=== PATIENT | female | born 1975 | race Caucasian/White ===

== ENCOUNTER → 2019-11-28 15:36 | Outpatient (BNVA) | payer BC, SELFPAY | PROVIDERS: Family Provider Nurse Practitioner; PCP Nurse Practitioner; Visit Provider Nurse Practitioner Family | DX: R00.2 Palpitations (principal); F41.9 Anxiety disorder, unspecified | CPT/HCPCS: 84439; 84443 ==

== ENCOUNTER 2020-02-08 09:44 | Outpatient (CLI) | payer BC, SELFPAY ==
--- NOTE | 2020-02-08 09:30 | USCV_ITS ---
Tami Molina Age: 44 Gender: F : 1975 Exam Date: 02/08/2020 10:09 Ordering Phys: Nadine Azevedo MD ([email or web address]) Technologist: Jenni Arana Exam Location: [facility] – [place] Indication: PVC'S BP: 100 / 60 HR: 53 Rhythm: Sinus Technical Quality: Adequate MEASUREMENTS (Male / Female) Normal Values 2D ECHO LV Diastolic Diameter PLAX 4.4 cm 4.2 - 5.9 / 3.9 - 5.3 cm LV Systolic Diameter PLAX 3.0 cm LV Chamber Size 2.5 cm IVS Diastolic Thickness 1.3 cm 0.6 - 1.0 / 0.6 - 0.9 cm IVS Systolic Thickness 1.3 cm LVPW Diastolic Thickness 1.2 cm 0.6 - 1.0 / 0.6 - 0.9 cm LVPW Systolic Thickness 1.2 cm RV Chamber Size 2.0 cm LVOT Diameter 2.1 cm LV Ejection Fraction 2D Teich 58.7 % LV Ejection Fraction MOD 2C 80.8 % LV Ejection Fraction 2C AL 82.6 % LA Diameter 3.1 cm LA Width 2.3 cm LA Height 4.5 cm RA Width 2.9 cm Aorta at Sinotubular Diameter 3.1 cm M-MODE LV Diastolic Diameter MM 4.2 cm 4.2 - 5.9 / 3.9 - 5.3 cm LV Systolic Diameter MM 2.7 cm LV Ejection Fraction MM Teich 64.0 % IVS Diastolic Thickness MM 0.9 cm 0.6 - 1.0 / 0.6 - 0.9 cm IVS Systolic Thickness MM 1.2 cm LVPW Diastolic Thickness MM 1.1 cm 0.6 - 1.0 / 0.6 - 0.9 cm LVPW Systolic Thickness MM 1.7 cm RV Diastolic Diameter MM 1.2 cm Aortic Annulus Diameter 3.5 cm LA Ao Ratio MM 0.9 MV E Point Septal Separation 0.5 cm DOPPLER AV Peak Velocity 136.0 cm/s LVOT Peak Velocity 87.0 cm/s AV Area Cont Eq vti 2.6 cm squared AV Area Cont Eq pk 2.2 cm squared MV Area PHT 4.3 cm squared Mitral E to A Ratio 1.7 MV E' Velocity 15.0 cm/s Mitral E to MV E' Ratio 8.4 Mitral E to LV E' Lateral Ratio 6.8 Mitral E to LV E' Septal Ratio 11.1 TR Peak Velocity 124.8 cm/s TR Peak Gradient 6.2 mmHg TR Mean Velocity 76.5 cm/s TR Mean Gradient 2.7 mmHg TR Velocity Time Integral 29.3 cm TV Peak E Velocity 81.0 cm/s Right Atrial Pressure 3.0 mmHg Pulmonary Artery Systolic Pressu 9.2 mmHg PV Peak Velocity 69.0 cm/s RV Acceleration Time 0.2 s RV Ejection Time 0.4 s RV AcT/ET 0.5 FINDINGS Left Ventricle Normal left ventricular size, systolic function and wall thickness, with no regional wall motion abnormalities. Left ventricular ejection fraction is estimated at 65 %. Normal diastolic function. Right Ventricle Normal right ventricular size and systolic function. Right ventricular systolic pressure 9.2 mmHg. Right Atrium Normal right atrial size. Right atrial pressure estimated at 3 mmHg. Left Atrium Normal left atrial size. Mitral Valve Structurally normal mitral valve. No mitral valve stenosis. Trace mitral valve regurgitation. Aortic Valve Structurally normal trileaflet aortic valve. No aortic valve stenosis. No aortic valve regurgitation. Tricuspid Valve Structurally normal tricuspid valve. Trace tricuspid valve regurgitation. Pulmonic Valve Pulmonic valve not well visualized. Pericardium No pericardial effusion. Aorta Normal-sized aortic root. CONCLUSIONS 1. Normal left ventricular size, systolic function and wall thickness, with no regional wall motion abnormalities. Left ventricular ejection fraction is estimated at 65 %. Normal diastolic function. 2. Normal right ventricular size and systolic function. 3. Normal pulmonary artery pressure. 4. No significant valvular abnormality. 5. No prior similar studies to compare. Nadine Azevedo MD (Electronically Signed) Final Date: 08 February 2020 13:25 S
--- NOTE | 2020-02-08 09:30 | US_ITS ---
WS: [id number] THYROID ULTRASOUND HISTORY: thyroid tenderness COMPARISON: None available. Right lobe: 5.4 cm x 2.7 cm x 2.1 cm. Volume: 15.9 cm3. RIGHT lobe is enlarged. There is a large mass centered in the mid gland with peripheral increased vas cularity. Mass measures 3.3 x 1.8 x 2.3 cm. There are a few cystic areas present but the mass is pred ominantly solid. Left lobe: 3.7 cm x 1.0 cm x 1.3 cm. Volume: 2.5 cm3. Normal size and echotexture. No significant or dominant nodules are present. Isthmus: 0.5 cm. US/US thyroid [id number] IMPRESSION: Solid RIGHT thyroid mass measures 3.3 x 1.8 x 2.3 cm. Recommend fine-needle asp iration with ultrasound guidance. Cytology needs to be performed to exclude mal ignancy.
== END 2020-02-08 09:45 | disposition home or self-care (01) ==
LOC: RAD 09:49
PROVIDERS: Family Provider Nurse Practitioner; PCP Nurse Practitioner Family; Visit Provider Internal Medicine Cardiovascular Disease
DX: R00.2 Palpitations (principal); E07.9 Disorder of thyroid, unspecified; R22.1 Localized swelling, mass and lump, neck
CPT/HCPCS: 76536; 93306

== ENCOUNTER 2020-03-14 11:02 | Outpatient (CLI) | payer BC, SELFPAY ==
--- NOTE | 2020-03-14 11:11 | ECG_ITS ---
NAME OF STUDY: TREADMILL STRESS TEST INDICATION: CARDIAC ARRYTHMIA, EXERCISE DATA: The patient was exercised by Daniel protocol. Baseline heart rate was 65 beats per minute. Baseline blood pressure was 111/79 millimeters of mercury. Target heart rate was 174 beats per minute. Maximum heart rate achieved was 161, which was 92 % of the target heart rate. Maximum blood pressure was 183/86 millimeters of mercury. Total exercise time was 8 minutes 1 second. Maximum METs achieved was 10.2, maximum VO2 was 35.7. The reason for ending the test was maximum effort. The patient complained of shortness of breath during the stress test, which then resolved at the end of the test. ELECTROCARDIOGRAM: BASELINE: Sinus rhythm, normal axis, no significant ST-T changes at the baseline noted. EXERCISE: At the peak exercise level, no significant ST-T changes suggestive of ischemia noted. RECOVERY: During the recovery period, heart rate dropped appropriately. No significant ST-T changes in the recovery suggestive of ischemia noted. CONCLUSION: 1. Exercise capacity fair. 2. Heart rate response was appropriate. 3. Blood pressure response was appropriate. 4. Symptoms not suggestive of ischemia. 5. Electrocardiogram portion of the stress test was not suggestive of ischemia. Electronically Signed On 03-14-2020 19:06:58 CDT by Teresa Arnold M.D. [email or web address]
[2020-03-14 11:13] VITALS: BMI 30.2
[2020-03-14 12:06] VITALS: BP 141/90; PULSE 91
== END 2020-03-14 11:03 | disposition home or self-care (01) ==
LOC: CDL 11:04
PROVIDERS: PCP Nurse Practitioner Family; Visit Provider Nurse Practitioner Family
DX: I49.9 Cardiac arrhythmia, unspecified (principal)
CPT/HCPCS: 93017

== ENCOUNTER → 2020-08-28 09:17 | Outpatient (BNVA) | payer BC, SELFPAY | PROVIDERS: PCP Nurse Practitioner Family; Visit Provider Nurse Practitioner Family | DX: R70.0 Elevated erythrocyte sedimentation rate (principal); E78.5 Hyperlipidemia, unspecified; R53.83 Other fatigue | CPT/HCPCS: 80053; 80061; 82607; 83735; 84443; 85007; 85027; 85651; 86038; 86431 ==

== ENCOUNTER → 2020-09-04 00:01 | Outpatient (BNVA) | payer BC, SELFPAY | PROVIDERS: PCP Nurse Practitioner Family; Visit Provider Nurse Practitioner Family | DX: R70.0 Elevated erythrocyte sedimentation rate (principal) | CPT/HCPCS: 85651 ==

== ENCOUNTER → 2020-09-11 09:16 | Outpatient (BNVA) | payer BC, SELFPAY | PROVIDERS: PCP Nurse Practitioner Family; Visit Provider Nurse Practitioner Family | DX: M54.9 Dorsalgia, unspecified (principal) | CPT/HCPCS: 81000 ==

== ENCOUNTER 2020-11-05 13:26 | Outpatient (CLI) | payer OTHER, SELFPAY ==
--- NOTE | 2020-11-05 13:35 | XR_ITS ---
WS: [id number] CHEST 2 VIEWS HISTORY: cough COMPARISON: None available. Lungs: Clear with no abnormality. No pleural effusion or pneumothorax. Cardiac size: Normal. Mediastinum/Aorta: Normal mediastinum. Bones: Mild thoracolumbar scoliosis. Prior anterior cervical fusion. XR/XR chest 2V* [id number] IMPRESSION: Normal chest.
--- NOTE | 2020-11-05 13:35 | XR_ITS ---
WS: [id number] CERVICAL SPINE 3 VIEWS HISTORY: M54.2 - Cervicalgia COMPARISON: None available. Mild straightening of the normal cervical lordosis. Less than 2 mm retrolisthesis of C5. Prior anteri or cervical fusion at C6-7 with interbody spacer. Fusion across the interbody spacer. Mild disc space narrowing at C5-6. Prevertebral soft tissues are normal. Lateral masses of C1 and C2 are aligned. Soft tissues are normal. XR/XR cervical spine 3V* [id number] IMPRESSION: 1. Prior anterior cervical fusion with interbody spacer at C6-7. 2. Minimal disc space narrowing at C5-6.
--- NOTE | 2020-11-05 13:35 | XR_ITS ---
WS: [id number] LUMBAR SPINE: 3 VIEWS TECHNIQUE: AP, lateral and L5-S1 spot. HISTORY: M54.5 - Low back pain COMPARISON: None available. History slight LEFT curvature the lumbar spine. Disc spaces are normal. Very minimal hypertrophic end plate changes due to osteophytes. No fractures. No loss of disc space or vertebral body height. SI joints are symmetric bilaterally. No soft tissue abnormalities. XR/XR lumbar spine 2-3V* [id number] IMPRESSION: Mild lumbar spondylosis.
== END 2020-11-05 13:27 | disposition home or self-care (01) ==
LOC: RADWPI 13:30
PROVIDERS: PCP Nurse Practitioner Family; Visit Provider Nurse Practitioner Family
DX: R05 Cough (principal); M47.816 Spondylosis without myelopathy or radiculopathy, lumbar region; M43.22 Fusion of spine, cervical region
CPT/HCPCS: 71046; 72040; 72100

== ENCOUNTER 2021-01-07 14:52 | Outpatient (CLI) | payer OTHER, SELFPAY ==
--- NOTE | 2021-01-07 15:09 | MR_ITS ---
WS: [id number] MRI CERVICAL SPINE NONCONTRAST AND CONTRAST TECHNIQUE: Sagittal T1, T2 and STIR imaging. Axial T2, gradient, and fiesta imaging. Post gadolinium imaging was obtained. CLINICAL INFORMATION: M47.12 - Other spondylosis with myelopathy, cervical region COMPARISON: MRI January 2010 FINDINGS: Straightening of the normal cervical lordosis. Cord signal is normal. No high-grade central canal janie nosis. ACDF C6-7 appears similar to previous. C2-C3: Normal. C3-C4: Mild facet arthropathy. Mild osteophytic ridging. Mild left and no significant right foraminal narrowing. C4-C5: Mild disc osteophyte complex with endplate ridging. Tiny central protrusion. Mild central melia l stenosis. Mild left greater than right foraminal narrowing. Mild facet arthropathy. C5-C6: Disc osteophyte complex with endplate ridging. Mild central canal stenosis. Mild bilateral for aminal narrowing. Mild facet arthropathy. Mild central canal stenosis. C6-C7: Postoperative changes anterior interbody fusion. Spinal canal and foramen are patent. C7-T1: Normal. Visualized brain stem structures: Normal. Prevertebral soft tissues: Normal. MR/MR cervical spine wo/w [id number] IMPRESSION: 1. Straightening of the normal cervical lordosis. Cord signal is normal. No hi gh-grade central canal narrowing. 2. Stable postoperative changes ACDF C6-7. 3. Mild central canal stenosis C4-5 with tiny central protrusion. 4. Mild central canal stenosis C5-C6. 5. Mild bony foraminal narrowing more prominent at left C3-4, bilateral C4-5, and bilateral C5-6.
[2021-01-07] MEDS: gadobenate dimeglumine 20 mL vial IV (15:53)
== END 2021-01-07 14:53 | disposition home or self-care (01) ==
LOC: RADWPI 14:55
PROVIDERS: PCP Nurse Practitioner Family; Visit Provider Orthopaedic Surgery
DX: M47.12 Other spondylosis with myelopathy, cervical region (principal); M48.02 Spinal stenosis, cervical region; M50.221 Other cervical disc displacement at C4-C5 level; Z98.1 Arthrodesis status
CPT/HCPCS: 72156; A9577

== ENCOUNTER → 2021-01-23 09:08 | Outpatient (BNVA) | payer OTHER, SELFPAY | PROVIDERS: PCP Nurse Practitioner Family; Referring Provider Orthopaedic Surgery; Visit Provider Anesthesiology Pain Medicine | DX: G89.29 Other chronic pain (principal); M54.12 Radiculopathy, cervical region; M50.90 Cervical disc disorder, unspecified, unspecified cervical region; M47.812 Spondylosis without myelopathy or radiculopathy, cervical region; F17.210 Nicotine dependence, cigarettes, uncomplicated | CPT/HCPCS: 99205 ==

== ENCOUNTER → 2021-01-29 10:04 | Outpatient (BNVA) | payer OTHER, SELFPAY | PROVIDERS: PCP Nurse Practitioner Family; Visit Provider Nurse Practitioner Family | DX: E03.9 Hypothyroidism, unspecified (principal); M54.2 Cervicalgia | CPT/HCPCS: 84443 ==

== ENCOUNTER → 2021-02-04 13:46 | Outpatient (BNVA) | payer OTHER, SELFPAY | PROVIDERS: PCP Nurse Practitioner Family; Visit Provider Anesthesiology Pain Medicine | DX: G89.29 Other chronic pain (principal); M54.12 Radiculopathy, cervical region; F17.210 Nicotine dependence, cigarettes, uncomplicated | CPT/HCPCS: 62321; J1100 ==

== ENCOUNTER → 2021-02-19 09:56 | Outpatient (BNVA) | payer OTHER, SELFPAY | PROVIDERS: PCP Nurse Practitioner Family; Visit Provider Anesthesiology Pain Medicine | DX: G89.29 Other chronic pain (principal); M47.812 Spondylosis without myelopathy or radiculopathy, cervical region; M54.12 Radiculopathy, cervical region; M50.90 Cervical disc disorder, unspecified, unspecified cervical region; F17.210 Nicotine dependence, cigarettes, uncomplicated | CPT/HCPCS: 99213; 99214 ==

== ENCOUNTER 2021-02-26 06:00 | Outpatient (RCR) | payer OTHER, SELFPAY | END 2021-03-25 23:59 | disposition home or self-care (01) | LOC: SPT 06:00 | PROVIDERS: PCP Nurse Practitioner Family; Referring Provider Anesthesiology Pain Medicine; Visit Provider Anesthesiology Pain Medicine | DX: M47.812 Spondylosis without myelopathy or radiculopathy, cervical region (principal); M54.2 Cervicalgia; G89.29 Other chronic pain | CPT/HCPCS: 97110; 97140; 97162 ==

== ENCOUNTER 2021-02-27 12:46 | Outpatient (CLI) | payer OTHER, SELFPAY ==
--- NOTE | 2021-02-27 12:45 | US_ITS ---
WS: [id number] ULTRASOUND THYROID TECHNIQUE: Ultrasound of the thyroid. CLINICAL INFORMATION: E04.1 - Nontoxic single thyroid nodule COMPARISON: Ultrasound February 08, 2020 FINDINGS: Thyroid: Prior right thyroidectomy. Left thyroid lobe is normal in appearance. No left thyroid nodule s. Left thyroid lobe: 3.3 cm x 1.1 cm x 1.2 cm. Isthmus: 0.2 mm. Cervical lymphadenopathy: None. US/US thyroid [id number] IMPRESSION: 1. Prior right thyroidectomy. 2. Left thyroid lobe is normal. No left thyroid nodules. 3. Normal isthmus. 4. No cervical lymphadenopathy.
== END 2021-02-27 12:47 | disposition home or self-care (01) ==
LOC: RAD 12:49
PROVIDERS: PCP Nurse Practitioner Family; Visit Provider Nurse Practitioner Family
DX: E04.1 Nontoxic single thyroid nodule (principal); E89.0 Postprocedural hypothyroidism
CPT/HCPCS: 76536

== ENCOUNTER 2021-03-26 06:00 | Outpatient (RCR) | payer OTHER, SELFPAY | END 2021-04-24 23:59 | disposition home or self-care (01) | LOC: SPT 06:00 | PROVIDERS: PCP Nurse Practitioner Family; Referring Provider Anesthesiology Pain Medicine; Visit Provider Anesthesiology Pain Medicine | DX: M47.812 Spondylosis without myelopathy or radiculopathy, cervical region (principal); M54.2 Cervicalgia; G89.29 Other chronic pain | CPT/HCPCS: 97110; 97140 ==

== ENCOUNTER 2021-04-25 06:00 | Outpatient (RCR) | payer SELFPAY | END 2021-05-25 23:59 | disposition home or self-care (01) | LOC: SPT 06:00 | PROVIDERS: PCP Nurse Practitioner Family; Referring Provider Anesthesiology Pain Medicine; Visit Provider Anesthesiology Pain Medicine | DX: M47.812 Spondylosis without myelopathy or radiculopathy, cervical region (principal); M54.2 Cervicalgia; G89.29 Other chronic pain | CPT/HCPCS: 97110 ==

== ENCOUNTER 2021-08-14 09:16 | Outpatient (CLI) | payer OTHER, SELFPAY ==
--- NOTE | 2021-08-14 09:30 | US_ITS ---
WS: [id number] ULTRASOUND ABDOMEN LIMITED CLINICAL INFORMATION: R10.811 - Right upper quadrant abdominal tenderness COMPARISON: None. FINDINGS: Liver Size: Normal. Craniocaudal length: 14.3 cm. Echogenicity: Normal. Surface nodularity: None. Mass (size and location): None. Bile ducts Intrahepatic ducts: Normal. Common bile duct diameter: 0.2 cm. Gallbladder Cholelithiasis Gallstones: Present. Gallbladder sludge: None. Gallbladder wall thickening: None. Pericholecystic fluid: None. Sonographic Mcdaniel sign: Absent. Pancreas Normal as visualized. Right kidney: Normal. Hydronephrosis: None. Size: 10.0 cm x 4.6 cm x 5.3 cm. Abdominal aorta and IVC Visualized portions are normal. Ascites: None. US/US gall bladder 06202 IMPRESSION: 1. Normal liver. 2. Cholelithiasis. No gallbladder wall thickening or pericholecystic fluid. 3. No hydronephrosis in right kidney. 4. No ascites.
== END 2021-08-14 09:17 | disposition home or self-care (01) ==
LOC: RAD 09:17
PROVIDERS: PCP Nurse Practitioner Family; Visit Provider Nurse Practitioner Family
DX: R10.811 Right upper quadrant abdominal tenderness (principal); K80.20 Calculus of gallbladder without cholecystitis without obstruction
CPT/HCPCS: 76705

== ENCOUNTER → 2021-08-23 13:45 | Outpatient (BNVA) | payer OTHER, SELFPAY | PROVIDERS: PCP Nurse Practitioner Family; Referring Provider Nurse Practitioner Family; Visit Provider Surgery | DX: Z20.822 Contact with and (suspected) exposure to COVID-19 (principal); K80.20 Calculus of gallbladder without cholecystitis without obstruction | CPT/HCPCS: 87635 ==

== ENCOUNTER 2021-08-28 09:49 | Day surgery (SDC) | payer OTHER, SELFPAY ==
[2021-08-27 14:50] VITALS: BMI 31.1
[2021-08-28] VITALS (15 sets, daily range): BP systolic 119–151; BP diastolic 72–94; PULSE 72–87; RESP 10–18; TEMP 36.2–36.3; O2SAT 92–100
--- NOTE | 2021-08-28 10:36 | ANES.PREANE2 ---
Pre-Anesthetic Assessment Pre-Anesthetic Assessment: Height/Weight: Height 1.57 m Weight 77.111 kg Temp Pulse Resp BP Pulse Ox 97.2 F L 73 16 122/88 97 08/28/21 10:12 08/28/21 10:12 08/28/21 10:12 08/28/21 10:12 08/28/21 10:12 Preop Diagnosis: Cholelithiasis Proposed Procedure: Operation Date: 08/28/21 11:10 Proposed Procedures p Laparoscopic Cholecystectomy 87042 K80.02(Not Applicable) - Herman Porter MD Familial anesthetic complications: None Was Beta Abdifatah taken within 24 hours: N/A Was Clonidine taken within 24 hours: N/A Last intake: Intake Last Liquid Date 08/27/21 Last Liquid Time 23:00 Last Solid Date 08/27/21 Last Solid Time 19:00 Social: Social History: Tobacco and No alcohol Exam: Pre-Anes Outpt Exam: alert, oriented x 3, clear to auscultation bilaterally and regular rate & rhythm Airway: MP: 3 Dentition: Partials Metabolic: Metabolic: Hyperlipidemia Anesthetic Plan: ASA status: 2 Anesthesia: General Risk of > 500 ml blood loss (7ml/kg in children): No PFSH Anesthesia PFSH: Medical History (Updated 08/23/21 @ 16:35 by Herman Porter MD) Anxiety Depression GERD (gastroesophageal reflux disease) Surgical History (Updated 08/23/21 @ 13:42 by Herman Porter MD) H/O: hysterectomy History of thyroid surgery Hx of fusion of cervical spine Family History Father CAD (coronary artery disease), Onset Age: 45 stents Grandfather CAD (coronary artery disease), Onset Age: 45 Social History Smoking and tobacco status: current every day smoker cigarettes Packs smoked per day: 1 Quit status (tobacco): has tried quititng Data Anesthesia Cardiac Studies: Holter Monitor 12/29/19
[2021-08-28 10:37] LABS: Glucose Point of Care 82 mg/dL (70-110)
[2021-08-28] MEDS: sodium chloride 0.9% 1,000 ML 30 ML IV (10:40)
--- NOTE | 2021-08-28 10:52 | W.PM.OPSUD ---
Surgery/Procedure H&P Update DATE OF PROCEDURE: August 28, 2021 DATE H&P PERFORMED: 08/23/21 H&P UPDATE INFORMATION: I have reviewed H&P completed within last 30 days, I have examined patient prior to procedure and No changes to prior documentation PREOP DIAGNOSIS: Cholelithiasis PLANNED PROCEDURE: Operation Date: 08/28/21 11:10 Proposed Procedures p Laparoscopic Cholecystectomy 04189 K80.02(Not Applicable) - Herman Porter MD
[2021-08-28] MEDS: ondansetron 2 mg/ML SDV 2 mL 4 MG IVP (12:25)
[2021-08-28] MEDS: fentaNYL 50 mcg/mL INJ 2mL IVP ×2 (12:31→12:46)
--- NOTE | 2021-08-28 12:38 | SUR.PHASEI ---
pt care assumed by KENYATTA AT 1230
--- NOTE | 2021-08-28 12:51 | SUR.PHASEI ---
PT RESTING QUETLY WITH EYES CLOSED , NO S/S OF PAIN , RELAXED FEATURES SATS DOWN TO 93% ON RA, PT AWAKES EASILY AND RATES PAIN AT 8 ON 0/10 SCALE. VSS ABD SOFT , PT ENCOURAGED TO COUGH AND DEEP BREATH NEEDED 1255 PT SATS 88% PT PLACED ON 3NC SATS UP TO 99% PT COUGHING OCC AND TAKING ICE CHIPS/.
--- NOTE | 2021-08-28 13:39 | PM.OP ---
Operative Report Date of procedure: August 28, 2021 Pre-op Diagnosis: Cholelithiasis Post-op diagnosis: same Procedure Done: Laparoscopic cholecystectomy Specimens removed/disposition: Gallbladder Surgeon: Herman Porter Anesthesia: General Condition: stable Disposition: PACU Procedure: The patient was taken to the operating room and was intubated under general anesthesia. After the antibiotic had been administered, the abdomen was prepped and draped in a sterile manner. Using a #15 blade, a 1 centimeter infraumbilical curvilinear incision was made and using an open Zeny technique the peritoneal cavity was entered. A 10 millimeter port was placed and 15 millimeters of pneumoperitoneum was created. A 10 millimeter, 30 degrees scope was then introduced. Three 5 millimeter ports were placed in the epigastric, midclavicular and the anterior axillary line two fingerbreadths below the costal margin on the right side under the direct visualization. Ratcheted forceps were introduced into the lateral most port and was used to retract the fundus of the gallbladder cephalad and using forceps the infundibulum of the gallbladder was retracted laterally. Using L-hook cautery the peritoneum overlying the Calot's triangle was opened medially and laterally until the cystic duct and the cystic artery were skeletonized. Dissection was carried along the body of the gallbladder and after ensuring critical view of safety, 4 clips applied on the cystic duct and 3 clips applied on the cystic artery and cut leaving, 3 clips on the remaining portion of the duct and 2 clips on the remaining portion of the artery. There was drainage of small amount of bile from an opening in the body of the gallbladder which was irrigated and suctioned out, there was no spillage of stones. The rest of the gallbladder was dissected off the liver using L-hook cautery. There was no bleeding or bile leaking noted from the gallbladder fossa and the clips appeared to be in place. An EndoCatch bag was introduced to remove the gallbladder. All the ports were removed under direct visualization and there was no bleeding noted from the port sites. The fascia of the umbilicus was closed using [id number] 0 Vicryl sutures and the subcutaneous tissue was approximated using 3-0 Vicryl sutures. The skin at all four ports were closed using 4-0 Monocryl and Dermabond. A total of 10 millimeters of 0.5% Marcaine was infiltrated around the port sites. The patient was stable throughout the procedure.
[2021-08-28] MEDS: HYDROcodone-acetaminophen 5-325 mg Tablet 1 TAB PO (13:40)
[2021-08-28] MEDS: promethazine 25 mg/mL SDV 1 mL 12.5 MG IM (14:12)
--- NOTE | 2021-08-28 14:57 | ANE.PACU2 ---
Inpatient post-anesthesia follow up: Airway intact: Yes Vital signs: Temperature 97.1 F Pulse Rate 74 Respiratory Rate 16 Blood Pressure 119/85 Pulse Oximetry 95 Oxygen Delivery Me thod Room Air Oxygen Flow Rate 3 Fraction of Inspir ed Oxygen Hydration adequate: Yes Nausea and vomiting: No Pain level: 1 Mental status: Baseline
== END 2021-08-28 14:30 | disposition home or self-care (01) ==
PROVIDERS: PCP Nurse Practitioner Family; Visit Provider Surgery
PROC: 0FT44ZZ Resection of Gallbladder, Percutaneous Endoscopic Approach (ICD-10-PCS; CPT 47562; principal; 2021-08-28 11:10)
DX: K80.20 Calculus of gallbladder without cholecystitis without obstruction (principal); R10.11 Right upper quadrant pain; K21.9 Gastro-esophageal reflux disease without esophagitis; F41.9 Anxiety disorder, unspecified; F17.210 Nicotine dependence, cigarettes, uncomplicated; Z90.710 Acquired absence of both cervix and uterus; Z98.1 Arthrodesis status
CPT/HCPCS: 47562; 36416; 82962; 88304; J0690; J1100; J1885; J2405; J2550; J2704; J2710; J3010; J3490; J7030

== ENCOUNTER → 2022-01-13 16:17 | Outpatient (BNVA) | payer OTHER, SELFPAY | PROVIDERS: PCP Nurse Practitioner Family; Visit Provider Nurse Practitioner Family | DX: R68.89 Other general symptoms and signs (principal); J22 Unspecified acute lower respiratory infection | CPT/HCPCS: 87400 ==

== ENCOUNTER → 2022-02-04 14:44 | Outpatient (BNVA) | payer OTHER, SELFPAY | PROVIDERS: PCP Nurse Practitioner Family; Visit Provider Nurse Practitioner Family | DX: E07.9 Disorder of thyroid, unspecified (principal); F41.9 Anxiety disorder, unspecified | CPT/HCPCS: 84439; 84443; 84481 ==

== ENCOUNTER → 2022-12-09 10:36 | Outpatient (BNVA) | payer OTHER, SELFPAY | PROVIDERS: PCP Nurse Practitioner Family; Visit Provider Nurse Practitioner Family | DX: R00.2 Palpitations (principal); E07.9 Disorder of thyroid, unspecified; E78.5 Hyperlipidemia, unspecified; L03.90 Cellulitis, unspecified; F41.9 Anxiety disorder, unspecified | CPT/HCPCS: 80053; 80061; 84439; 84443; 84481; 85025 ==

== ENCOUNTER 2023-01-09 09:27 | Outpatient (CLI) | payer OTHER, SELFPAY ==
--- NOTE | 2023-01-09 09:30 | US_ITS ---
WS: [id number] ULTRASOUND THYROID TECHNIQUE: Ultrasound of the thyroid. CLINICAL INFORMATION: E07.9 - Disorder of thyroid, unspecified COMPARISON: Ultrasound February 27, 2021 FINDINGS: Thyroid: RIGHT thyroid lobe surgically absent. Homogeneous LEFT thyroid lobe. Increased vascularity L EFT thyroid lobe. Right thyroid lobe: Surgically absent Left thyroid lobe: 4.1 cm x 0.9 cm x 1.4 cm. Isthmus: 0.2 mm. Cervical lymphadenopathy: None. US/US thyroid [id number] IMPRESSION: 1. RIGHT thyroid lobe surgically absent 2. No suspicious solid thyroid nodules. 3. Homogeneous LEFT thyroid with increased vascularity progressed compared to previous. This can be seen with thyroiditis. Recommend correlation with thyroid function studies. 4. No cervical lymphadenopathy.
== END 2023-01-09 09:28 | disposition home or self-care (01) ==
PROVIDERS: PCP Nurse Practitioner Family; Visit Provider Nurse Practitioner Family
DX: E07.9 Disorder of thyroid, unspecified (principal); E89.0 Postprocedural hypothyroidism
CPT/HCPCS: 76536

== ENCOUNTER → 2023-01-27 08:50 | Outpatient (BNVA) | payer OTHER, SELFPAY | PROVIDERS: PCP Nurse Practitioner Family; Visit Provider Nurse Practitioner Family | DX: E07.9 Disorder of thyroid, unspecified (principal) | CPT/HCPCS: 84443 ==

== ENCOUNTER → 2023-06-04 08:57 | Outpatient (BNVA) | payer OTHER, SELFPAY | PROVIDERS: PCP Nurse Practitioner Family; Visit Provider Nurse Practitioner Family | DX: E06.9 Thyroiditis, unspecified (principal); E78.5 Hyperlipidemia, unspecified; E07.9 Disorder of thyroid, unspecified; L65.9 Nonscarring hair loss, unspecified; R00.2 Palpitations; I10 Essential (primary) hypertension | CPT/HCPCS: 80053; 80061; 82306; 83550; 84439; 84443; 84481; 85025 ==

== ENCOUNTER 2023-07-15 08:44 | Outpatient (CLI) | payer OTHER, SELFPAY ==
--- NOTE | 2023-07-15 09:02 | MM_ITS ---
WS: [id number] SCREENING DIGITAL BREAST TOMOSYNTHESIS MAMMOGRAM WITH CAD HISTORY: SCREENING COMPARISON: None available. Bilateral CC and MLO with tomosynthesis and synthetic mammography submitted. Computer aided detection analyzed. Breast composition: There are scattered areas of fibroglandular density. 5 mm nodule in the central R IGHT breast near 9-10 o'clock needs further evaluation. There are benign calcifications within each b reast otherwise. No distortion. IMPRESSION: MM/[place] [id number] BI-RADS: 0-Incomplete: Need additional imaging evaluation FOLLOW UP: Need Additional Imaging RIGHT breast: Spot compression views (CC and MLO). True ML. Ultrasound to follo w if abnormality persists.
== END 2023-07-15 08:45 | disposition home or self-care (01) ==
PROVIDERS: PCP Nurse Practitioner Family; Visit Provider Registered Nurse
DX: Z12.31 Encounter for screening mammogram for malignant neoplasm of breast (principal)
CPT/HCPCS: 77063; 77067

== ENCOUNTER 2023-07-28 14:47 | Outpatient (CLI) | payer OTHER, SELFPAY ==
--- NOTE | 2023-07-28 14:52 | MM_ITS ---
WS: [id number] ADDITIONAL VIEWS RIGHT MAMMOGRAM WITH DIGITAL BREAST TOMOSYNTHESIS. RIGHT BREAST ULTRASOUND HISTORY: ABNORMAL MAMMO COMPARISON: 07/15/2023 RIGHT MAMMOGRAM: Spot compression views and true ML with digital breast tomosynthesis and SM. 6 mm mass persists in the central RIGHT breast near the 10:00 axis. This nodule is just above the nip ple line and within the lateral breast. No additional abnormalities RIGHT BREAST ULTRASOUND 2-D and color Doppler imaging submitted. No mass or nodule is identified in the RIGHT breast near 10:00. IMPRESSION: MM/[place] [id number] BI-RADS: 3-Probably Benign FOLLOW UP: 6 Month Follow-up Very subtle mammographic abnormality RIGHT breast at 10:00. No corresponding ul trasound abnormality. Favor this is probably benign. Recommend 6-month RIGHT ma mmogram follow-up.
== END 2023-07-28 14:48 | disposition home or self-care (01) ==
LOC: RAD 14:48
PROVIDERS: PCP Nurse Practitioner Family; Visit Provider Registered Nurse
DX: R92.8 Other abnormal and inconclusive findings on diagnostic imaging of breast (principal)
CPT/HCPCS: 76642; 77061; G0279

== ENCOUNTER 2023-09-03 10:14 | Outpatient (CLI) | payer OTHER, SELFPAY ==
[2023-09-03 11:32] LABS: Free T4 Free Thyroxine 1.06 ng/dL (0.82-1.77); Thyroid Stimulating Hormone 2.11 uIU/mL (0.27-4.20)
[2023-09-04 06:30] LABS: T3 Total 134 ng/dL (76-181)
[2023-09-07 07:40] LABS: Thyroid Peroxidase Antobodies <1 IU/mL (<9)
[2023-09-07 11:35] LABS: Thyroglobulin AB <1 IU/mL (< or = 1)
[2023-09-12 03:54] LABS: TSH Receptor Binding Antibody <1.00 IU/L (< OR = 2.00)
== END 2023-09-03 10:15 | disposition home or self-care (01) ==
PROVIDERS: PCP Nurse Practitioner Family; Visit Provider Internal Medicine
DX: E03.9 Hypothyroidism, unspecified (principal)
CPT/HCPCS: 36415; 83516; 84439; 84443; 84480; 86376; 86800

== ENCOUNTER 2023-10-06 10:35 | Outpatient (CLI) | payer OTHER, SELFPAY ==
--- NOTE | 2023-10-06 11:00 | FL_ITS ---
WS: [id number] Exam: FL barium swallow modifd [id number] Date/Time of Exam: 10/06/2023 10:56 AM Reason For Exam: Fluoroscopy time: 1min [id number] minutes # of spot films: Modified barium swallow was performed in conjunction with the speech therapy service. Oropharyngeal phase of swallowing was normal. There was no sign of aspiration or penetration. The pat ient tolerated all consistencies of barium mixture foodstuffs without aspiration. The patient ingeste d a barium tablet without complication. IMPRESSION: 1. Unremarkable modified barium swallow study. A separate report and recommendations will follow from the speech therapy service.
== END 2023-10-06 10:36 | disposition home or self-care (01) ==
LOC: RAD 10:35
PROVIDERS: PCP Nurse Practitioner Family; Visit Provider Internal Medicine
DX: R13.10 Dysphagia, unspecified (principal)
CPT/HCPCS: 74230; 92611

== ENCOUNTER → 2023-11-11 11:04 | Outpatient (BNVA) | payer OTHER, SELFPAY | PROVIDERS: PCP Nurse Practitioner Family; Visit Provider Internal Medicine | DX: E03.9 Hypothyroidism, unspecified (principal); E06.9 Thyroiditis, unspecified | CPT/HCPCS: 84439; 84443; 84480 ==

== ENCOUNTER 2023-11-24 07:38 | Outpatient (CLI) | payer OTHER, SELFPAY ==
--- NOTE | 2023-11-24 07:30 | US_ITS ---
WS: [id number] THYROID ULTRASOUND HISTORY: History of RIGHT thyroid mass. COMPARISON: 01/09/2023 Right lobe: Prior RIGHT thyroidectomy. No recurrent thyroid tissue or mass at the bed. No adenopathy. Left lobe: 1.0 cm x 1.0 cm x 3.4 cm (w x ap x l). Volume: 1.7 cm3. Normal size and echotexture. No significant or dominant nodules are present. Isthmus: 0.5 cm. IMPRESSION: 1. RIGHT thyroidectomy. 2. Negative LEFT thyroid. No mass. No increased vascularity seen on today's exam.
== END 2023-11-24 07:39 | disposition home or self-care (01) ==
LOC: RAD 07:38
PROVIDERS: PCP Nurse Practitioner Family; Visit Provider Internal Medicine
DX: E06.9 Thyroiditis, unspecified (principal); R13.10 Dysphagia, unspecified; Z98.890 Other specified postprocedural states
CPT/HCPCS: 76536

== ENCOUNTER 2024-03-07 11:03 | Outpatient (CLI) | payer OTHER, SELFPAY ==
--- NOTE | 2024-03-07 11:14 | MM_ITS ---
WS: [id number] ADDITIONAL VIEWS RIGHT MAMMOGRAM WITH DIGITAL BREAST TOMOSYNTHESIS. RIGHT BREAST ULTRASOUND HISTORY: ABNORMAL MAMMOGRAM OF R BREAST COMPARISON: 07/28/2023, 07/15/2023 RIGHT MAMMOGRAM: Spot compression views and true ML with digital breast tomosynthesis and SM. The subtle asymmetry persists measuring 4.4 mm central to the RIGHT nipple and probably just above th e nipple line. This nodule is less conspicuous and slightly smaller in size. No new mass or nodule. RIGHT BREAST ULTRASOUND 2-D and color Doppler imaging submitted. No mass or nodule is identified by ultrasound. This nodule is also not identified on the prior exam b y ultrasound. MM/[place] [id number] IMPRESSION: BI-RADS: 3-Probably Benign FOLLOW UP: 6 Month Follow-up Patient to return in 6 months for her annual mammogram. Additional imaging can be performed at that time of this nodule within the RIGHT breast. Ultrasound ma y not be necessary as it was not visualized by ultrasound on the last 2 exams. If the nodule becomes larger in size or changes ultrasound may be necessary.
== END 2024-03-07 11:04 | disposition home or self-care (01) ==
LOC: RAD 11:05
PROVIDERS: PCP Nurse Practitioner Family; Visit Provider Registered Nurse
DX: R92.8 Other abnormal and inconclusive findings on diagnostic imaging of breast (principal)
CPT/HCPCS: 76642; 77061; G0279

== ENCOUNTER → 2024-05-10 10:56 | Outpatient (BNVA) | payer OTHER, SELFPAY | PROVIDERS: PCP Nurse Practitioner Family; Visit Provider Internal Medicine | DX: E03.9 Hypothyroidism, unspecified (principal) | CPT/HCPCS: 84439; 84443 ==

== ENCOUNTER → 2024-05-24 10:43 | Outpatient (BNVA) | payer OTHER, SELFPAY | PROVIDERS: PCP Nurse Practitioner Family; Visit Provider Nurse Practitioner Family | DX: F17.210 Nicotine dependence, cigarettes, uncomplicated (principal) | CPT/HCPCS: 80053; 80061; 81162 ==

== ENCOUNTER → 2024-07-12 10:27 | Outpatient (BNVA) | payer OTHER, SELFPAY | PROVIDERS: PCP Nurse Practitioner Family; Visit Provider Internal Medicine | DX: E06.9 Thyroiditis, unspecified (principal); E03.9 Hypothyroidism, unspecified; E55.9 Vitamin D deficiency, unspecified | CPT/HCPCS: 82306; 84439; 84443; 84480 ==

== ENCOUNTER 2024-09-16 13:13 | Outpatient (CLI) | payer OTHER, SELFPAY ==
--- NOTE | 2024-09-16 13:18 | MM_ITS ---
WS: [id number] BILATERAL 3D TOMOSYNTHESIS DIGITAL SCREENING MAMMOGRAPHY WITH CAD CLINICAL INFORMATION: SCREENING HISTORY: Screening mammogram. No current complaints. COMPARISON: 03/07/2024 TECHNIQUE: Bilateral CC and MLO views. FINDINGS: Scattered fibroglandular densities bilaterally. Previously described nodular asymmetric density measu ring 4 mm central RIGHT breast appears unchanged since 2022. This was not previously visualized by ul juliansound x2. Recommend 6-month follow-up RIGHT breast diagnostic mammography as previously recommende d to ensure 18 to 24-month stability. LEFT breast is unremarkable MM/MM [facility] tomosynthesis [id number] IMPRESSION: DENSITY: There are scattered areas of fibroglandular density. BI-RADS: 3 - Probably Benign. FOLLOW UP: 6 Month Follow-up Recommend RIGHT breast diagnostic mammography as previously suggested
== END 2024-09-16 13:14 | disposition home or self-care (01) ==
PROVIDERS: PCP Nurse Practitioner Family; Visit Provider Registered Nurse
DX: Z12.31 Encounter for screening mammogram for malignant neoplasm of breast (principal); R92.323 Mammographic fibroglandular density, bilateral breasts; N64.89 Other specified disorders of breast
CPT/HCPCS: 77063; 77067

== ENCOUNTER 2024-12-27 09:55 | Outpatient (CLI) | payer OTHER, SELFPAY ==
--- NOTE | 2024-12-27 10:04 | US_ITS ---
WS: [id number] THYROID ULTRASOUND HISTORY: THYROIDITIS COMPARISON: None available. Right lobe: Prior RIGHT thyroidectomy. No recurrent mass or adenopathy along the thyroid bed or cervical chain. Left lobe: 0.9 cm x 1.4 cm x 3.7 cm (w x ap x l). Volume: 2.3 cm3. Normal size and echotexture. No significant or dominant nodules are present. Isthmus: 0.3 cm. US/US thyroid [id number] IMPRESSION: 1. Status post RIGHT thyroidectomy. 2. Normal LEFT thyroid lobe.
== END 2024-12-27 09:56 | disposition home or self-care (01) ==
LOC: RAD 09:59
PROVIDERS: PCP Nurse Practitioner Family; Visit Provider Internal Medicine
DX: E06.9 Thyroiditis, unspecified (principal); Z98.890 Other specified postprocedural states
CPT/HCPCS: 76536

== ENCOUNTER → 2024-12-30 10:10 | Outpatient (BNVA) | payer OTHER, SELFPAY | PROVIDERS: PCP Nurse Practitioner Family; Visit Provider Internal Medicine | DX: E03.9 Hypothyroidism, unspecified (principal) | CPT/HCPCS: 84439; 84443 ==

== ENCOUNTER 2025-03-23 08:21 | Outpatient (CLI) | payer OTHER, SELFPAY ==
--- NOTE | 2025-03-23 08:24 | MM_ITS ---
WS: [id number] RIGHT 3D TOMOSYNTHESIS DIGITAL MAMMOGRAPHY WITH CAD CLINICAL INFORMATION: ABNORMAL MAMMOGRAM HISTORY: 6-month follow-up COMPARISON: 2023 2022 TECHNIQUE: 3 views of the right breast were obtained. FINDINGS: Scattered fibroglandular densities of the right breast. Previously described small nodule measuring 4 mm central RIGHT breast is unchanged since 07/28/2023. Recommend 1 additional 6-month follow-up for 2-year stability. Ultrasound was attempted in the past x2 and lesion was not visualized. Ultrasound not performed today. MM/MM diag RT tomosynthesis [id number] IMPRESSION: DENSITY: There are scattered areas of fibroglandular density. BI-RADS: 3 - Probably Benign. FOLLOW UP: 6 Month Follow-up Recommend 6-month follow-up RIGHT breast diagnostic mammography. If findings ar e stable and then return to annual screening mammography.
== END 2025-03-23 08:22 | disposition home or self-care (01) ==
PROVIDERS: PCP Nurse Practitioner Family; Visit Provider Registered Nurse
DX: Z12.31 Encounter for screening mammogram for malignant neoplasm of breast (principal); R92.321 Mammographic fibroglandular density, right breast; R92.8 Other abnormal and inconclusive findings on diagnostic imaging of breast
CPT/HCPCS: 77061; G0279